=== PATIENT | female | born 1945 | race Caucasian/White ===

== ENCOUNTER 2018-11-05 03:27 | Emergency (ER) | payer OTHER ==
[~2018-11-05] VITALS: Ht 154.9 cm; Wt 63.5 kg
[~2018-11-05 03:27] MED LIST: ASA81 MG; PTE NO RECUERDA
[2018-11-05] MEDS ORDERED: LIPITOR20 MG PO (03:45)
[2018-11-05] MEDS ORDERED: GLUMETZA500 MG PO (03:45)
[2018-11-05] MEDS ORDERED: COZAAR25 MG PO (03:46)
== END 2018-11-05 17:24 | disposition home or self-care (01) ==
LOC: ER 03:27
DX: N93.8 Other specified abnormal uterine and vaginal bleeding (principal); K64.8 Other hemorrhoids; K52.89 Other specified noninfective gastroenteritis and colitis; D25.1 Intramural leiomyoma of uterus; R19.7 Diarrhea, unspecified